=== PATIENT | female | born 1980 | race Two or more races ===

== ENCOUNTER 2020-09-01 19:25 | Emergency (ER) | payer SELFPAY ==
[~2020-09-01] VITALS: Ht 160 cm; Wt 63.5 kg
[2020-09-01] MEDS ORDERED: cloNIDine HCL 0.1 MG TAB PO ONE (23:15)
[2020-09-01 23:28] LABS: Basophils # (auto) 0 10 ^3/uL (0-0.2); Basophils % (auto) 0.4 % (0.0-2.0); Eosinophils # (auto) 0.2 10 ^3/uL (0-0.8); Eosinophils % (auto) 2.1 % (0.0-7.0); Hematocrit 39.8 % (36.0-46.0); Hemoglobin 13.5 g/dL (12.2-16.2); Lymphocytes # (auto) 2.3 10 ^3/uL (0.4-5.4); Lymphocytes % (auto) 30.7 % (10.0-50.0); Mean Corpuscular Hemoglobin 28.5 pg (28.0-32.0); Mean Corpuscular Hgb Conc. 33.9 g/dL (32.0-36.0); Monocytes # (auto) 0.4 10 ^3/uL (0-1.3); Monocytes % (auto) 5.9 % (0.0-12.0); Neutrophils # (auto) 4.5 10 ^3/uL (1.6-8.6); Neutrophils % (auto) 60.9 % (37.0-80.0); Platelet Count (auto) 333 10^3/uL (140-450); Red Blood Cells 4.74 10^6/uL (4.0-5.20); Red Cell Distribution Width 13.8 % (11.8-14.3); White Blood Cell 7.4 10^3/uL (4.4-10.8)
[2020-09-01 23:48] LABS: Calcium 8.6 mg/dL (8.5-10.1); Potassium 3.3 mmol/L (3.5-5.1)
[2020-09-01 23:51] LABS: Bilirubin, Total 0.4 mg/dL (0.2-1.0)
[2020-09-02 00:15] LABS: Partial Thromboplastin Time 25.3 sec (23.0-31.2)
[2020-09-02] MEDS ORDERED: POTASSIUM CHL 20 Meq TABLET PO ONE (02:00)
[2020-09-02 02:34] VITALS: BP 126/84
== END 2020-09-02 04:06 | disposition home or self-care (01) ==
LOC: ER 19:25
DX: R51.9 Headache, unspecified (principal); R03.0 Elevated blood-pressure reading, without diagnosis of hypertension; E87.6 Hypokalemia
CPT/HCPCS: 36415; 70450; 71045; 80053; 84484; 85025; 85610; 85730; 93005

== ENCOUNTER 2022-12-13 00:13 | Emergency (ER) | payer BC, OTHER ==
[~2022-12-13] VITALS: Ht 157.5 cm; Wt 68.0 kg
[2022-12-13 01:02] LABS: Basophils # (auto) 0 10 ^3/uL (0-0.2); Basophils % (auto) 0.5 % (0.0-2.0); Eosinophils # (auto) 0.2 10 ^3/uL (0-0.8); Eosinophils % (auto) 2.4 % (0.0-7.0); Hematocrit 38.1 % (36.0-46.0); Lymphocytes % (auto) 30.1 % (10.0-50.0); Mean Corpuscular Hemoglobin 29.1 pg (28.0-32.0); Mean Corpuscular Hgb Conc. 34.1 g/dL (32.0-36.0); Mean Corpuscular Volume 85.1 fL (80.0-100.0); Monocytes # (auto) 0.5 10 ^3/uL (0-1.3); Monocytes % (auto) 7.6 % (0.0-12.0); Neutrophils # (auto) 3.9 10 ^3/uL (1.6-8.6); Neutrophils % (auto) 59.4 % (37.0-80.0); Red Blood Cells 4.48 10^6/uL (4.0-5.20); Red Cell Distribution Width 14.1 % (11.8-14.3); White Blood Cell 6.6 10^3/uL (4.4-10.8)
[2022-12-13 01:20] LABS: Albumin 3.5 g/dL (3.4-5.0); BUN/Creatinine Ratio 29.5 (10.0-20.0); Calcium 8.7 mg/dL (8.5-10.1); Potassium 3.8 mmol/L (3.5-5.1)
[2022-12-13 01:23] LABS: Bilirubin, Total 0.2 mg/dL (0.2-1.0); Total Protein 7.7 g/dL (6.4-8.2)
[2022-12-13 06:16] VITALS: BP 148/89
== END 2022-12-13 06:21 | disposition home or self-care (01) ==
LOC: ER 00:13
DX: I16.0 Hypertensive urgency (principal); I10 Essential (primary) hypertension
CPT/HCPCS: 36415; 70450; 71045; 80053; 84484; 85025; 93005